=== PATIENT | female | born 1955 | race Caucasian/White ===

== ENCOUNTER 2016-10-11 14:01 | Emergency (ER) | payer SELFPAY ==
[~2016-10-11] VITALS: Ht 160 cm; Wt 53.0 kg
[2016-10-11 14:06] VITALS: BP 141/81; PULSE 67; RESP 16; TEMP 98.6; O2SAT 99
[2016-10-11] MEDS ORDERED: [UNRECOGNIZED DRUG - CODE] (14:17)
[2016-10-11] MEDS ORDERED: KETO10 PO (14:18)
[2016-10-11] MEDS ORDERED: CIPR-9 PO (14:20)
[2016-10-11] MEDS ORDERED: TETANUS/DIPHTHERIA TOXOID ADULT 0.5 ML VIAL IM ONE (14:30)
--- NOTE | 2016-10-11 14:30 | PD ---
HPI Chief Complaint: Injury Time Seen by Provider: 14:23 Travel History International Travel<30 days: No Contact w/Intl Traveler<30days: No Traveled to known affect area: No History of Present Illness HPI 61-year-old female presents to the emergency room for evaluation of a puncture wound to her left foot. Patient stepped on a nail earlier today. It punctured through her shoe. Patient states it bled a lot. She soaked her foot in running water but did not clean it with soap. She put a Band-Aid on it and then came to the emergency room. She reports moderate pain, especially when walking. States when she moves her toes there is some pain around the laceration. Unknown last tetanus. PFSH Past Medical History Hx Anticoagulant Therapy: No Arthritis: Yes Blood Disorders: No Depression: Yes Cancer: No Cardiovascular Problems: Yes (DIZZINESS) Diabetes: No Diminished Hearing: No Endocrine: No Gastrointestinal Disorders: Yes (IBS) GERD: Yes Genitourinary: No Headaches: Yes Immune Disorder: No Musculoskeletal: Yes (CHRONIC BACK PAIN ) Neurologic: Yes Psychiatric: Yes Reproductive: No Respiratory: No Immunizations Current: No Tetanus Vaccination: > 5 Years Influenza Vaccination: No ?: Not Menopausal: Yes Tubal Ligation: Yes Past Surgical History Gynecologic Surgery: Yes (BREAST BX,TUBAL LIGATION) Neurologic Surgery: Yes (THORACIC FUSION,CERVICAL FUSION ) Thoracic Surgery: Yes (THORACIC FUSION 1997) Other Surgery: Yes (THORACIC FUSION T10-12) Social History Alcohol Use: Yes (Soc.) Tobacco Use: No Substance Use: No Allergies-Medications (Allergen,Severity, Reaction): Coded Allergies: Codeine (Verified Allergy, Severe, Nausea/Vomiting, 10/11/16) Darvocet-N 100 (Verified Allergy, Severe, severe nausea/vomiting, 10/11/16) Percocet (Verified Allergy, Severe, VOMIT, 10/11/16) Vicoprofen (Verified Allergy, Severe, Nausea/Vomiting, 10/11/16) Reported Meds & Prescriptions Reported Meds & Active Scripts Active Cipro (Ciprofloxacin HCl) 500 Mg Tab 500 Mg PO BID 7 Days Reported Ketorolac (Ketorolac Tromethamine) 10 Mg Tab 10 Mg PO Q6HR PRN Demerol (Meperidine HCl) 50 Mg/1 Ml Vial Review of Systems Except as stated in HPI: all other systems reviewed are Neg Physical Exam Narrative GENERAL: Well-nourished, well-developed female in no acute distress. Afebrile. Ambulatory. SKIN: Focused skin assessment warm/dry. There is a 2 mm puncture wound on the plantar left foot just below the great toe. It is nonbleeding. No surrounding erythema or lymphangitis. HEAD: Normocephalic. EYES: No scleral icterus. No injection or drainage. NECK: Supple, trachea midline. No JVD or lymphadenopathy. CARDIOVASCULAR: Regular rate and rhythm without murmurs, gallops, or rubs. RESPIRATORY: Breath sounds equal bilaterally. No accessory muscle use. EXTREMITY: Left plantar wharf tender head to palpation around the puncture wound. Full range of motion of the foot. Less than 2 second capillary refill distally. 2 point discrimination intact distally. Data Data Last Documented VS Vital Signs Date Time Temp Pulse Resp B/P Pulse Ox O2 Delivery O2 Flow Rate FiO2 10/11/16 14:11 15 100 Room Air 10/11/16 14:06 98.6 67 141/81 Orders Tetanus/Diphtheria Tox Adult (Tetanus/Di (10/11/16 14:30) MDM Medical Decision Making Medical Screen Exam Complete: Yes Emergency Medical Condition: Yes Medical Record Reviewed: Yes Differential Diagnosis Puncture wound versus wound care versus tetanus prophylaxis Narrative Course 61-year-old female presents to the emergency room after stepping on a nail earlier today. The nail went through her shoe. There is a 2 mm puncture wound to the left plantar foot. It is tender to palpation. There is no surrounding lymphangitis. No purulent drainage. Full range of motion of the foot. It is neurovascularly intact with 2+ dorsalis pedis pulse and 2 point discrimination intact. Patient updated on tetanus. Discharged with prescription for Cipro. Told to follow up with PCP or return for worsening symptoms. She understands and agrees to plan. Diagnosis Primary Impression: Puncture wound of plantar aspect of foot Qualified Code: S91.332A - Puncture wound of plantar aspect of foot, left, initial encounter Referrals: Primary Care Physician Patient Instructions: General Instructions, Puncture Wound (ED) Additional Instructions: Rest and drink plenty of fluids. Keep wound clean and dry. Apply triple antibiotic ointment daily. Take Cipro as directed, until gone. Follow up with a primary care physician. Return to emergency room for worsening symptoms, as discussed. Med/Other Pt SpecificInfo: Prescription(s) given Scripts Ciprofloxacin (Cipro)500 Mg Mik035 Mg PO BID 7 Days Ref 0 Prov:Timoteo Villagomez MD 10/11/16 Disposition: 01 DISCHARGE HOME Condition: Stable Edwina Camejo Oct 11, 2016 14:30
== END 2016-10-11 14:36 | disposition home or self-care (01) ==
LOC: PHEFT 14:01
DX: S91.332A Puncture wound without foreign body, left foot, initial encounter (principal); Z23 Encounter for immunization; Z87.39 Personal history of other diseases of the musculoskeletal system and connective tissue; Z86.59 Personal history of other mental and behavioral disorders; Z86.79 Personal history of other diseases of the circulatory system; Z87.19 Personal history of other diseases of the digestive system; Z86.69 Personal history of other diseases of the nervous system and sense organs; W45.0XXA Nail entering through skin, initial encounter
CPT/HCPCS: 90471; 90714

== ENCOUNTER 2017-02-21 07:51 | Emergency (ER) | payer SELFPAY ==
[~2017-02-21] VITALS: Ht 160 cm; Wt 53.0 kg
[~2017-02-21 07:51] MED LIST: CIPR-9 PO; KETO10 PO; [UNRECOGNIZED DRUG - CODE]
[2017-02-21 07:54] VITALS: BP 111/64; PULSE 68; RESP 16; TEMP 98.1; O2SAT 96
[2017-02-21] MEDS ORDERED: ALPR.5 PO (08:08)
[2017-02-21] MEDS ORDERED: FENT25DI T-DERMAL (08:08)
[2017-02-21] MEDS ORDERED: CITA20TA4 PO (08:08)
[2017-02-21] MEDS ORDERED: TRAM50TA PO (08:08)
[2017-02-21] MEDS ORDERED: CYCL1TAB29 PO (08:08)
--- NOTE | 2017-02-21 08:12 | PD ---
HPI Chief Complaint: Fall Time Seen by Provider: 07:58 Travel History International Travel<30 days: No Contact w/Intl Traveler<30days: No Traveled to known affect area: No History of Present Illness HPI This 61-year-old female is complaining of pain in her left hip. He says that last night she was walking in the dark and she fell and landed on her left side. Since then she's been unable to put any weight on her left leg. She is having a lot of pain in the left hip. She did not hit her head. She has no pain anywhere else. She said she crawled into bed. She has a history of anterior cervical fusion and has fibromyalgia. She does use a fentanyl patch as needed. She has multiple pain medication allergies. She is able to take morphine PFSH Past Medical History Hx Anticoagulant Therapy: No Arthritis: Yes Blood Disorders: No Depression: Yes Cancer: No Cardiovascular Problems: Yes (DIZZINESS) Diabetes: No Diminished Hearing: No Endocrine: No Fibromyalgia: Yes Gastrointestinal Disorders: Yes (IBS) GERD: Yes Genitourinary: No Headaches: Yes Immune Disorder: No Musculoskeletal: Yes (CHRONIC BACK PAIN ) Neurologic: Yes Psychiatric: Yes Reproductive: No Respiratory: No Immunizations Current: No Influenza Vaccination: No ?: Not Menopausal: Yes Tubal Ligation: Yes Past Surgical History Gynecologic Surgery: Yes (BREAST BX,TUBAL LIGATION) Neurologic Surgery: Yes (THORACIC FUSION,CERVICAL FUSION ) Thoracic Surgery: Yes (THORACIC FUSION 1997) Other Surgery: Yes (THORACIC FUSION T10-12) Social History Alcohol Use: Yes (Soc.) Tobacco Use: No Substance Use: No Allergies-Medications (Allergen,Severity, Reaction): Coded Allergies: acetaminophen (Unverified Allergy, Severe, VOMIT, 02/21/17) codeine (Unverified Allergy, Severe, Nausea/Vomiting, 02/21/17) hydrocodone (Unverified Allergy, Severe, Nausea/Vomiting, 02/21/17) ibuprofen (Unverified Allergy, Severe, Nausea/Vomiting, 02/21/17) oxycodone (Unverified Allergy, Severe, VOMIT, 02/21/17) propoxyphene (Unverified Allergy, Severe, severe nausea/vomiting, 02/21/17 ) Reported Meds & Prescriptions Reported Meds & Active Scripts Active Morphine IR (Morphine Sulfate) 15 Mg Tab 15 Mg PO Q4H PRN Reported Fentanyl Patch 72 HR (Fentanyl) 25 Mcg/Hr Patch 25 Mcg T-DERMAL Q72H Tramadol (Tramadol HCl) 50 Mg Tab 50 Mg PO Q4H PRN Xanax (Alprazolam) 0.5 Mg Tab 0.5 Mg PO HS PRN Citalopram (Citalopram Hydrobromide) 20 Mg Tab 20 Mg PO DAILY Flexeril (Cyclobenzaprine HCl) 10 Mg Tab 10 Mg PO TID Ketorolac (Ketorolac Tromethamine) 10 Mg Tab 10 Mg PO Q6HR PRN Review of Systems General / Constitutional: No: Fever, Chills Eyes: No: Diploplia, Blurred Vision HENT: No: Headaches, Vertigo Cardiovascular: No: Chest Pain or Discomfort, Palpitations Respiratory: No: Cough, Shortness of Breath Gastrointestinal: No: Nausea, Vomiting Genitourinary: No: Urgency, Frequency Musculoskeletal: Positive: Myalgias, Arthralgias, Pain Skin: No Rash, No Itching Neurologic: No: Weakness, Dizziness Psychiatric: No: Anxiety Endocrine: No: Heat Intolerance Hematologic/Lymphatic: No: Easy Bruising Physical Exam Narrative GENERAL: Well-developed female SKIN: Focused skin assessment warm/dry. HEAD: Atraumatic. Normocephalic. EYES: Pupils equal and round. No scleral icterus. No injection or drainage. ENT: No nasal bleeding or discharge. Mucous membranes pink and moist. NECK: Trachea midline. No JVD. CARDIOVASCULAR: Regular rate and rhythm. No murmur appreciated. RESPIRATORY: No accessory muscle use. Clear to auscultation. Breath sounds equal bilaterally. GASTROINTESTINAL: Abdomen soft, non-tender, nondistended. Hepatic and splenic margins not palpable. MUSCULOSKELETAL: No obvious deformities. No clubbing. No cyanosis. No edema. She is quite tender in the area of the left hip. Complains with any movement of the hip. There is no shortening of the leg. Pulses and sensation are intact NEUROLOGICAL: Awake and alert. No obvious cranial nerve deficits. Motor grossly within normal limits. Normal speech. PSYCHIATRIC: Appropriate mood and affect; insight and judgment normal. Data Data Last Documented VS Vital Signs Date Time Temp Pulse Resp B/P (MAP) Pulse Ox O2 Delivery O2 Flow Rate FiO2 02/21/17 08:38 65 16 122/71 (88) 99 Room Air 02/21/17 07:54 98.1 Orders Orders Hip, Uni(Ap&Lat) W Ap Pelvis (02/21/17 08:07) Morphine Inj (Morphine Inj) (02/21/17 08:15) Ondansetron Inj (Zofran Inj) (02/21/17 08:15) Iv Access Insert/Monitor (02/21/17 08:12) Chest, Single Ap (02/21/17 08:36) Ct Pelvis W/O Iv Contrast (02/21/17 ) Crutches (02/21/17 09:58) Morphine Inj (Morphine Inj) (02/21/17 10:00) MDM Medical Decision Making Medical Screen Exam Complete: Yes Emergency Medical Condition: Yes Medical Record Reviewed: Yes Differential Diagnosis Plain film of the left hip shows a fracture at the superior aspect of the left greater trochanter. I have ordered a CT scan to further define this fracture and ensure that there is not any additional fracture of the hip as she complains of inability to bear weight. CT scan confirms the fracture of the greater trochanter and no other fracture is seen. Narrative Course CT confirms that this is an isolated fracture of the greater trochanter. Patient has been advised nonweightbearing, follow-up with orthopedics. She has multiple pain medication allergies No prescription for morphine IR for pain. Diagnosis Primary Impression: Fracture of greater trochanter of left femur Additional Instructions: Follow-up with orthopedics Scripts Morphine IR (Morphine IR) 15 Mg Tab 15 MG PO Q4H Y for PAIN, #20 TAB 0 Refills Prov: Francois Madison MD 02/21/17 Disposition: 01 DISCHARGE HOME Condition: Stable Francois Madison MD Feb 21, 2017 08:12
[2017-02-21] MEDS ORDERED: MORPHINE SULFATE 8 MG/ML INJ IV PUSH ONE ×2 (08:15→10:00)
[2017-02-21] MEDS ORDERED: ONDANSETRON HCL 4 MG/2 ML VIAL IV PUSH ONE (08:15)
[2017-02-21 08:38] VITALS: BP 122/71; PULSE 65; RESP 16; O2SAT 99
--- NOTE | 2017-02-21 08:43 | RADRPT ---
EXAM DATE/TIME: 02/21/2017 08:25 [facility] COMPARISON: No previous studies available for comparison. INDICATIONS : Left hip pain post fall today MEDICAL HISTORY : None. SURGICAL HISTORY : None. ENCOUNTER: Initial ACUITY: 1 day PAIN SCORE: 10/10 LOCATION: Left entire hip FINDINGS: There is a fracture at the superior aspect of the left greater trochanter. No other fracture is seen. The left hip joint is normally aligned. The bones are osteopenic. CONCLUSION: Fracturing of the superior aspect of the left greater trochanter. Tray Ryder MD on February 21, 2017 at 8:40 Board Certified Radiologist. This report was verified electronically.
--- NOTE | 2017-02-21 08:47 | RADRPT ---
EXAM DATE/TIME: 02/21/2017 08:25 [facility] COMPARISON: No previous studies available for comparison. INDICATIONS : Trauma to chest post fall today MEDICAL HISTORY : None. SURGICAL HISTORY : None. ENCOUNTER: Initial ACUITY: 1 day PAIN SCORE: 0/10 LOCATION: Bilateral chest FINDINGS: A single view of the chest demonstrates the lungs to be symmetrically aerated without evidence of mas s, infiltrate or effusion. The cardiomediastinal contours are unremarkable. There appears be chronic change at the T11-T12 level. CONCLUSION: No acute disease. Tray Ryder MD on February 21, 2017 at 8:43 Board Certified Radiologist. This report was verified electronically.
--- NOTE | 2017-02-21 09:20 | RADRPT ---
EXAM DATE/TIME: 02/21/2017 08:54 [facility] COMPARISON: No previous studies available for comparison. INDICATIONS : Fracture seen on x-rays, fall, hip pain. ORAL CONTRAST: No oral contrast ingested. RADIATION DOSE: 8.63 CTDIvol (mGy) MEDICAL HISTORY : Irritiable bowel syndrome. Cardiovascular disease SURGICAL HISTORY : Tubal ligation. Breast biopsy, Thoracic and cervical fusions. ENCOUNTER: Initial ACUITY: 1 day PAIN SCALE: 10/10 LOCATION: Left pelvis hip. TECHNIQUE: Volumetric scanning of the pelvis was performed. Using automated exposure control and adjustment of the mA and/or kV according to patient size, radiation dose was kept as low as reasonably achievable t o obtain optimal diagnostic quality images. DICOM format image data is available electronically for review and comparison. FINDINGS: BOWEL/MESENTERY: The visualized small and large bowel demonstrate no acute abnormality. There is no free fluid. BLADDER: There is no wall thickening or mass. RETROPERITONEUM: There is no aneurysm or lymphadenopathy. REPRODUCTIVE: Within normal limits. INGUINAL: There is no lymphadenopathy or hernia. MUSCULOSKELETAL: There is fracturing of the superior aspect of the left greater trochanter. The joints are normally al igned. No other fracture seen. There is some degenerative change at the L5-S1 level. CONCLUSION: Fracturing of the superior aspect of the left greater trochanter. Tray Ryder MD on February 21, 2017 at 9:16 Board Certified Radiologist. This report was verified electronically.
[2017-02-21] MEDS ORDERED: MSIR15 PO (10:00)
[2017-02-21 10:13] VITALS: BP 103/62; PULSE 65; RESP 18; O2SAT 99
== END 2017-02-21 11:11 | disposition home or self-care (01) ==
LOC: PHED 07:51
DX: S72.112A Displaced fracture of greater trochanter of left femur, initial encounter for closed fracture (principal); Z98.1 Arthrodesis status; Z87.39 Personal history of other diseases of the musculoskeletal system and connective tissue; Z86.59 Personal history of other mental and behavioral disorders; Z86.79 Personal history of other diseases of the circulatory system; Z87.19 Personal history of other diseases of the digestive system; Z86.69 Personal history of other diseases of the nervous system and sense organs; W18.39XA Other fall on same level, initial encounter
CPT/HCPCS: 71010; 72192; 73502; 96374; 96375; 96376; 99285; E0113; J2270; J2405

== ENCOUNTER 2017-03-07 13:20 | Emergency (ER) | payer SELFPAY ==
[~2017-03-07] VITALS: Ht 160 cm; Wt 53.0 kg
[~2017-03-07 13:20] MED LIST changes: +ALPR.5 PO; -CIPR-9 PO; +CITA20TA4 PO; +CYCL10TA PO; +FENT25DI T-DERMAL; +MSIR15 PO; +TRAM50TA PO; -[UNRECOGNIZED DRUG - CODE]
[2017-03-07 13:34] VITALS: BP 129/64; PULSE 87; RESP 16; TEMP 97.8; O2SAT 99
--- NOTE | 2017-03-07 14:42 | PD ---
HPI Chief Complaint: Musculoskeletal Complaint Time Seen by Provider: 14:03 Travel History International Travel<30 days: No Contact w/Intl Traveler<30days: No Traveled to known affect area: No History of Present Illness HPI 61 year old woman with hx of left hip greater trochanter fx followed by orthopedic Dr. Liu. She is here for evaluation of left knee pain & concern of possible "meniscus tear" she denies recent injury. She reports she in non weight bearing since the hip Fx. She is currently on Fentanyl patches for chronic pain & Morphine IR for break through pain of the hip. Her pain is localized to the left knee. She does not endorse increasing pain within the left hip. PFSH Past Medical History Hx Anticoagulant Therapy: No Arthritis: Yes Blood Disorders: No Depression: Yes Cancer: No Cardiovascular Problems: Yes (DIZZINESS) Diabetes: No Diminished Hearing: No Endocrine: No Fibromyalgia: Yes Gastrointestinal Disorders: Yes (IBS) GERD: Yes Genitourinary: No Headaches: Yes Immune Disorder: No Musculoskeletal: Yes (CHRONIC BACK PAIN ) Neurologic: Yes Psychiatric: Yes Reproductive: No Respiratory: No Immunizations Current: No Menopausal: Yes Tubal Ligation: Yes Past Surgical History Gynecologic Surgery: Yes (BREAST BX,TUBAL LIGATION) Neurologic Surgery: Yes (THORACIC FUSION,CERVICAL FUSION ) Thoracic Surgery: Yes (THORACIC FUSION 1997) Other Surgery: Yes (THORACIC FUSION T10-12) Social History Alcohol Use: Yes (Soc.) Tobacco Use: No Substance Use: No Allergies-Medications (Allergen,Severity, Reaction): Coded Allergies: acetaminophen (Unverified Allergy, Severe, VOMIT, 03/07/17) codeine (Unverified Allergy, Severe, Nausea/Vomiting, 03/07/17) hydrocodone (Unverified Allergy, Severe, Nausea/Vomiting, 03/07/17) ibuprofen (Unverified Allergy, Severe, Nausea/Vomiting, 03/07/17) oxycodone (Unverified Allergy, Severe, VOMIT, 03/07/17) propoxyphene (Unverified Allergy, Severe, severe nausea/vomiting, 03/07/17) Reported Meds & Prescriptions Reported Meds & Active Scripts Active Morphine IR (Morphine Sulfate) 15 Mg Tab 15 Mg PO Q4H PRN Reported Fentanyl Patch 72 HR (Fentanyl) 25 Mcg/Hr Patch 25 Mcg T-DERMAL Q72H Tramadol (Tramadol HCl) 50 Mg Tab 50 Mg PO Q4H PRN Xanax (Alprazolam) 0.5 Mg Tab 0.5 Mg PO HS PRN Citalopram (Citalopram Hydrobromide) 20 Mg Tab 20 Mg PO DAILY Ketorolac (Ketorolac Tromethamine) 10 Mg Tab 10 Mg PO Q6HR PRN Review of Systems Except as stated in HPI: all other systems reviewed are Neg General / Constitutional: No: Fever Eyes: No: Visual changes HENT: No: Headaches Cardiovascular: No: Chest Pain or Discomfort Respiratory: No: Shortness of Breath Gastrointestinal: No: Abdominal Pain Genitourinary: No: Dysuria Physical Exam Narrative GENERAL: Alert well-appearing female in no acute distress SKIN: Warm and dry. HEAD: Atraumatic. Normocephalic. EYES: Pupils equal and round. No scleral icterus. No injection or drainage. ENT: No nasal bleeding or discharge. Mucous membranes pink and moist. NECK: Trachea midline. No JVD. CARDIOVASCULAR: Regular rate and rhythm. RESPIRATORY: No accessory muscle use. Clear to auscultation. Breath sounds equal bilaterally. GASTROINTESTINAL: Abdomen soft, non-tender, nondistended. Hepatic and splenic margins not palpable. MUSCULOSKELETAL: Extremities without clubbing, cyanosis, or edema. No obvious deformities. Left lower extremity: TTP left lateral hip. Left knee: Nontender , no effusion, joint is stable. 2+ distal pulses. No calf swelling or pedal edema. NEUROLOGICAL: Awake and alert. No obvious cranial nerve deficits. Motor grossly within normal limits. Five out of 5 muscle strength in the arms and legs. Normal speech. PSYCHIATRIC: Appropriate mood and affect; insight and judgment normal. Data Data Last Documented VS Vital Signs Date Time Temp Pulse Resp B/P (MAP) Pulse Ox O2 Delivery O2 Flow Rate FiO2 03/07/17 13:34 97.8 87 16 129/64 (85) 99 Orders Orders Ketorolac Inj (Toradol Inj) (03/07/17 14:45) Ed Discharge Order (03/07/17 14:43) [facility] Medical Decision Making Medical Screen Exam Complete: Yes Emergency Medical Condition: Yes Differential Diagnosis knee strain, pain related to known left hip Fx Narrative Course 61 year old woman with hx of left hip greater trochanter fx followed by orthopedic Dr. Liu. She is here for evaluation of left knee pain & concern of possible "meniscus tear" she denies recent injury. She reports she in non weight bearing since the hio Fx. She is currently on Fentanyl patches for chronic pain & Morphine IR for break through pain of the hip. On exam the left knee is nontender. No effusion. The joint is stable. The leg is nontender & without swelling. I believe this is referred pain from the hip. Diagnosis Primary Impression: Knee pain Qualified Codes: M25.562 - Pain in left knee Referrals: Mario Liu MD Additional Instructions: take your pain medication as prescribed. follow up with Dr. Liu Disposition: 01 DISCHARGE HOME Condition: Stable Nicole Alexander Mar 07, 2017 14:42
[2017-03-07] MEDS ORDERED: KETOROLAC TROMETHAMINE 60 MG/2 ML (IM) VIAL IM ONE (14:45)
== END 2017-03-07 15:02 | disposition home or self-care (01) ==
LOC: PHEFT 13:20
DX: M25.562 Pain in left knee (principal); G89.29 Other chronic pain
CPT/HCPCS: 96372; 99284; J1885

== ENCOUNTER 2017-07-21 11:59 | Emergency (ER) | payer SELFPAY ==
[~2017-07-21 11:59] MED LIST changes: -CYCL10TA PO
[2017-07-21 12:38] VITALS: BP 141/68; PULSE 63; RESP 14; TEMP 97.5; O2SAT 100
--- NOTE | 2017-07-21 13:34 | RADRPT ---
EXAM DATE/TIME: 07/21/2017 13:18 [facility] COMPARISON: No previous studies available for comparison. INDICATIONS : Fell and hit head 2 weeks ago. Dizzy and nauseous since RADIATION DOSE: 34.85 CTDIvol (mGy) MEDICAL HISTORY : None SURGICAL HISTORY : Fusion, thoracic. ENCOUNTER: Initial ACUITY: 1 day PAIN SCALE: 0/10 LOCATION: cranial TECHNIQUE: Multiple contiguous axial images were obtained of the head. Using automated exposure control and adj ustment of the mA and/or kV according to patient size, radiation dose was kept as low as reasonably a chievable to obtain optimal diagnostic quality images. DICOM format image data is available electro nically for review and comparison. FINDINGS: CEREBRUM: The ventricles are normal for age. No evidence of midline shift, mass lesion, hemorrhage or acute in farction. No extra-axial fluid collections are seen. POSTERIOR FOSSA: The cerebellum and brainstem are intact. The 4th ventricle is midline. The cerebellopontine angle i s unremarkable. EXTRACRANIAL: The visualized portion of the orbits is intact. SKULL: The calvaria is intact. No evidence of skull fracture. CONCLUSION: Normal examination for a patient of this age. Keshawn Yadav MD on July 21, 2017 at 13:31 Board Certified Radiologist. This report was verified electronically.
--- NOTE | 2017-07-21 14:03 | PD ---
HPI Chief Complaint: Head Injury Time Seen by Provider: 13:50 Travel History International Travel<30 days: No Contact w/Intl Traveler<30days: No Traveled to known affect area: No History of Present Illness HPI 62 YO F presents to the ED for evaluation of dizziness, sensation is at the room is spinning. Intermittent 2 weeks. Patient states that 2 weeks ago she lost her balance and fell, striking her head on the concrete. She is unsure if she lost consciousness. She is not been evaluated for this. She states that she has chronic problems with her legs and this led to her fall. She denies vision changes, difficulties with speech, numbness, tingling, weakness, limitations range of motion of extremities. She sees a primary care provider and takes fentanyl patches, morphine and Xanax daily. PFSH Past Medical History Hx Anticoagulant Therapy: No Arthritis: Yes Blood Disorders: No Depression: Yes Cancer: No Cardiovascular Problems: Yes (DIZZINESS) Diabetes: No Diminished Hearing: No Endocrine: No Fibromyalgia: Yes Gastrointestinal Disorders: Yes (IBS) GERD: Yes Genitourinary: No Headaches: Yes Immune Disorder: No Musculoskeletal: Yes (CHRONIC BACK PAIN ) Neurologic: Yes Psychiatric: Yes Reproductive: No Respiratory: No Immunizations Current: No Menopausal: Yes Tubal Ligation: Yes Past Surgical History Gynecologic Surgery: Yes (BREAST BX,TUBAL LIGATION) Neurologic Surgery: Yes (THORACIC FUSION,CERVICAL FUSION ) Thoracic Surgery: Yes (THORACIC FUSION 1997) Other Surgery: Yes (THORACIC FUSION T10-12) Social History Alcohol Use: Yes (Soc.) Tobacco Use: No Substance Use: No Allergies-Medications (Allergen,Severity, Reaction): Coded Allergies: acetaminophen (Unverified Allergy, Severe, VOMIT, 03/07/17) codeine (Unverified Allergy, Severe, Nausea/Vomiting, 03/07/17) hydrocodone (Unverified Allergy, Severe, Nausea/Vomiting, 03/07/17) ibuprofen (Unverified Allergy, Severe, Nausea/Vomiting, 03/07/17) oxycodone (Unverified Allergy, Severe, VOMIT, 03/07/17) propoxyphene (Unverified Allergy, Severe, severe nausea/vomiting, 03/07/17) Reported Meds & Prescriptions Reported Meds & Active Scripts Active Meclizine (Meclizine HCl) 25 Mg Tab 25 Mg PO TID PRN Morphine IR (Morphine Sulfate) 15 Mg Tab 15 Mg PO Q4H PRN Reported Fentanyl Patch 72 HR (Fentanyl) 25 Mcg/Hr Patch 25 Mcg T-DERMAL Q72H Tramadol (Tramadol HCl) 50 Mg Tab 50 Mg PO Q4H PRN Xanax (Alprazolam) 0.5 Mg Tab 0.5 Mg PO HS PRN Citalopram (Citalopram Hydrobromide) 20 Mg Tab 20 Mg PO DAILY Ketorolac (Ketorolac Tromethamine) 10 Mg Tab 10 Mg PO Q6HR PRN Review of Systems Except as stated in HPI: all other systems reviewed are Neg Physical Exam Narrative GENERAL: Well-nourished, well-developed white female in no acute distress. Sitting up in the chair at bedside. SKIN: Warm and dry. Thorough evaluation reveals no edema, ecchymosis, abrasion , or laceration of the skin. HEAD: Normocephalic. Atraumatic. No raccoon eyes or sanchez sign. No tenderness to palpation of the skull. No bony step-offs. No malocclusion of the teeth. EYES: No scleral icterus. No injection or drainage. PERRLA. EOMI. ENT: Pearly singh tympanic membrane is bilaterally. Nasal mucosa is moist. Oropharynx without erythema, edema or exudate. NECK: Supple, trachea midline. No JVD or lymphadenopathy. No midline tenderness to palpation. Patient retains full, active, painless range of motion of the neck. CARDIOVASCULAR: Regular rate and rhythm without murmurs, gallops, or rubs. 2+ DP and radial pulses bilaterally. RESPIRATORY: Breath sounds clear and equal bilaterally. No accessory muscle use. GASTROINTESTINAL: Abdomen soft, non-tender, nondistended. + Bowel sounds MUSCULOSKELETAL: No cyanosis, or edema. Walks with a normal gait NEUROLOGICAL: Awake and alert. Cranial nerves II through XII intact. Motor and sensory grossly within normal limits. 5/5 muscle strength in all muscle groups. Normal speech. BACK: Nontender without obvious deformity. No CVA tenderness. No midline tenderness. Data Data Last Documented VS Vital Signs Date Time Temp Pulse Resp B/P (MAP) Pulse Ox O2 Delivery O2 Flow Rate FiO2 07/21/17 14:25 07/21/17 14:15 70 07/21/17 12:38 97.[address] Brain W/O Iv Contrast(Rout) (07/21/17 ) Orthostatic Blood Pressure (07/21/17 14:10) Meclizine (Antivert) (07/21/17 14:15) Ed Discharge Order (07/21/17 14:16) [facility] Medical Decision Making Medical Screen Exam Complete: Yes Emergency Medical Condition: Yes Differential Diagnosis Medication side effect versus closed head injury versus orthostatic hypotension versus other Narrative Course 62 YO F presents to the ED for evaluation of dizziness, sensation is at the room is spinning. Intermittent 2 weeks. Patient states that 2 weeks ago she lost her balance and fell, striking her head on the concrete. She is unsure if she lost consciousness. She states that she has chronic problems with her legs and this led to her fall. She denies vision changes, difficulties with speech, numbness, tingling, weakness, limitations range of motion of extremities. She sees a primary care provider and takes fentanyl patches, morphine and Xanax daily. Vitals reviewed. On exam the patient has no focal neuro deficits. Orthostatic vitals negative. CT normal per radiology read. I suspect these are medication side effects. However, patient is prescribed a short course of meclizine and instructed to follow-up with a neurologist. She is stable and discharged home. Diagnosis Primary Impression: Dizziness Additional Impression: Closed head injury Qualified Codes: S09.90XA - Unspecified injury of head, initial encounter Additional Instructions: Rest, hydrate. Return to normal, gentle activity as tolerated. Take meclizine as prescribed. Follow up with a neurologist if symptoms persist. Return to the ED for worsening symptoms or any urgent or emergent medical condition. Med/Other Pt SpecificInfo: Prescription(s) given Scripts Meclizine (Meclizine) 25 Mg Tab 25 MG PO TID Y for VERTIGO, #15 TAB 0 Refills Prov: David Butler MD 07/21/17 Disposition: 01 DISCHARGE HOME Condition: Stable Salma Yang Jul 21, 2017 14:03
[2017-07-21 14:15] VITALS: BP 122/58; PULSE 70
[2017-07-21] MEDS ORDERED: MECLIZINE HCL 25 MG TAB PO ONE (14:15)
[2017-07-21] MEDS ORDERED: MECL-62 PO (14:16)
== END 2017-07-21 14:25 | disposition home or self-care (01) ==
LOC: NED 11:59 → NEPK 14:25
DX: S09.90XA Unspecified injury of head, initial encounter (principal); W19.XXXA Unspecified fall, initial encounter
CPT/HCPCS: 70450; 99283